=== PATIENT | male | born 1985 | race Caucasian/White ===

== ENCOUNTER 2022-05-14 17:23 | Inpatient (IN) | payer MEDICAID, OTHER, SELFPAY ==
[2022-05-14 17:34] VITALS: BP 123/87; BP 140/62; PULSE 74; PULSE 76; RESP 18; TEMP 36.8; O2SAT 96; O2SAT 98; BMI 42.8
--- NOTE | 2022-05-14 17:34 | ED_ITS ---
HPI - Psych General Chief Complaint: Psychiatric Symptoms Stated Complaint: section 12 HI Source: patient Mode of arrival: ambulatory Limitations: no limitations History of Present Illness HPI Narrative: 37-year-old male history of anxiety, depression, PTSD presents with anxiety, depression, thoughts of wanting to hurt other people around him. Patient tells me he wants to hurt random people around him however does not have a particular plan. Patient arrives on a Section 12 by N. patient reports med compliance. Denies visual, auditory and tactile hallucinations. Denies drugs, alcohol and tobacco. No medical complaints. According to patient's Section he was recently incarcerated for 16 years for murder. Related Data Allergies Allergy/AdvReac Type Severity Reaction Status Date / Time Unable to Assess Allergy Unverified 05/14/22 17:33 Review of Systems Review of Systems: Constitutional : No Fever, No Chills ENT/Mouth : No Ear Pain, No Nasal Congestion, No sore throat Eyes: No Eye Pain, No Swelling, No Redness Cardiovascular : No Chest Pain, No SOB Respiratory : No Cough, No Sputum, No Dyspnea Gastrointestinal : No Nausea, No Vomiting, No Diarrhea, No Hematochezia, No Melena Genitourinary : No Dysuria, No Urinary Frequency, No Hematuria Musculoskeletal : No Myalgias Skin : No Skin Lesions, No rash Neuro : No Weakness, No Numbness, No Paresthesias, No Dizziness, No Headache Psych : positive Anxiety, positive Depression, positive HI, No Si Heme/Lymph: No Lymphadenopathy Endocrine : No Polyuria, No Polydipsia All other systems reviewed and are negative Yes all other systems are reviewed and are negative [facility] Past Medical History Attestation statement: The following information was validated with the patient. Source: old records reviewed and nursing notes reviewed Social History Social History Advance Directives: No Advance Directives Information Provided: No Physical Exam Vital Signs: Vital Signs: Last Vital Signs Temp 98.3 F 05/14/22 17:34 Pulse 76 05/14/22 17:34 Resp 18 05/14/22 17:34 BP 123/87 05/14/22 17:34 Pulse Ox 98 05/14/22 17:34 O2 Del Method 05/14/22 17:34 BMI result Body Mass Index 42.8 vss Appearance: Alert.? Oriented X3.? No acute distress.? Head: Normocephalic, atraumatic, no step-offs or deformities Eyes: Pupils equal, round and reactive to light.? CVS: Normal heart rate and rhythm.? Pulses normal.? Respiratory: No respiratory distress.? Breath sounds normal.? Abdomen: Soft and nontender.? Skin: Skin warm and dry.? Normal skin color.? Normal skin turgor.? Extremities: No lower extremity edema.? No calf ttp. 5/5 strength to bilateral upper and lower extremities Neuro: Oriented X 3.? No motor deficit.? No sensory deficit. CN 2-12 intact Course Reevaluation(s) Reevaluation #1: CBC with slight leukocytosis likely reactive. CMP without acute findings requiring intervention. UA clean. BEEBE clean. Etanol negative. COVID negative. At this time patient will be placed into observation to allow more time to be evaluated by the behavioral health team. Time observation was started patient common cooperative no acute distress will continue to monitor. Time: 21:12 Medical Decision Making Medical Decision Making [facility] Narrative: [id number] 37-year-old presents with homicidal ideation, anxiety and depression physical exam benign likely anxiety, depression with homicidal ideation. I do not suspect metabolic derangements. Will rule out polysubstance abuse, ethanol use plan medical clearance evaluation by behavioral health team Differential Diagnosis Differential Diagnoses: The differential diagnosis associated with the presentation includes likely anxiety, depression with homicidal ideation. I do not suspect metabolic derangements. Will rule out polysubstance abuse, ethanol use Admission/Observation Consideration of admission/observation: Escalation of care including admission/observation considered Lab Data 05/14/22 17:43 05/14/22 17:43 Labs: Lab Results 05/14/22 05/14/22 05/14/22 Range/Units 17:42 17:43 17:43 WBC 13.5 H (4.8-10.8) X10*3/uL RBC 5.08 (4.60-5.80) X10*6/uL Hgb 14.4 (14.0-18.0) g/dl Hct 44.2 (42.0-52.0) % MCV 87.0 (80.0-98.0) fL MCH 28.3 (27.0-33.0) pg MCHC 32.6 (31.0-36.0) g/dl RDW 13.8 (11.0-16.0) % Plt Count 251 (160-400) X10*3/uL MPV 11.2 (9.4-12.4) fL Immature Gran % (Auto) 0.4 (0.0-0.4) % Neut % (Auto) 63.5 (45-73) % Lymph % (Auto) 28.7 (20-40) % [place] % (Auto) 5.5 (2-11) % Eos % (Auto) 1.5 (0-4) % Baso % (Auto) 0.4 (0-2) % Lymph # (Auto) 3.9 (1.2-4.9) X10*3/uL [place] # (Auto) 0.7 (0.1-1.2) X10*3/uL Eos # (Auto) 0.2 (0.0-0.4) X10*3/uL Baso # (Auto) 0.1 (0.0-0.2) X10*3/uL Abs Immat Gran (auto) 0.05 H (0.00-0.03) X10*3/uL Absolute Neuts (auto) 8.6 H (2.0-8.3) x10*3/uL Absolute Nucleated RBC 0.000 (0.0-0.012) X10*3/uL Nucleated RBC % (auto) 0.0 (0.0-0.2) /100WBC Sodium 143 (135-145) mmol/L Potassium 4.3 (3.3-5.1) mmol/L Chloride 106 (96-108) mmol/L Carbon Dioxide 30 H (22-29) mmol/L Anion Gap 11 L (12-20) BUN 13 (9-16) mg/dL Creatinine 0.80 (0.5-1.4) mg/dL Estim Creat Clear Calc 191.1 Estimated GFR > 60 Random Glucose 97 (60-115) mg/dL Calcium 9.4 (8.4-10.2) mg/dL Magnesium 1.9 (1.6-2.6) mg/dL Total Bilirubin 0.4 (0.0-1.0) mg/dL AST 26 (5-37) U/L ALT 48 H (0-40) U/L Alkaline Phosphatase 93 (39-117) U/L Total Protein 7.9 (6.5-8.0) g/dL Albumin 4.0 (3.5-5.0) g/dL Urine Color Urine Appearance Urine pH (5.0-9.0) Ur Specific [place] (1.005-1.025) Urine Protein (Neg-Trace) mg/dL Urine Glucose (UA) (Negative) mg/dL Urine Ketones (Negative) mg/dL Urine Blood (Negative) Urine Nitrite (Negative) Ur Leukocyte Esterase (Negative) Urine Opiates Screen Not Detected (Not Detect) Urine Fentanyl Screen Not Detected (Not Detect) Ur Barbiturates Screen Not Detected (Not Detect) Ur Phencyclidine Scrn Not Detected (Not Detect) Ur Amphetamines Screen Not Detected (Not Detect) U Benzodiazepines Scrn Not Detected (Not Detect) Urine Cocaine Screen Not Detected (Not Detect) U Marijuana (THC) Screen Not Detected (Not Detect) Ethyl Alcohol < 10 mg/dL COVID-19 ([facility]AN) (Negative) COVID-19 Clin Com 05/14/22 05/14/22 Range/Units 17:43 17:43 WBC (4.8-10.8) X10*3/uL RBC (4.60-5.80) X10*6/uL Hgb (14.0-18.0) g/dl Hct (42.0-52.0) % MCV (80.0-98.0) fL MCH (27.0-33.0) pg MCHC (31.0-36.0) g/dl RDW (11.0-16.0) % Plt Count (160-400) X10*3/uL MPV (9.4-12.4) fL Immature Gran % (Auto) (0.0-0.4) % Neut % (Auto) (45-73) % Lymph % (Auto) (20-40) % [place] % (Auto) (2-11) % Eos % (Auto) (0-4) % Baso % (Auto) (0-2) % Lymph # (Auto) (1.2-4.9) X10*3/uL [place] # (Auto) (0.1-1.2) X10*3/uL Eos # (Auto) (0.0-0.4) X10*3/uL Baso # (Auto) (0.0-0.2) X10*3/uL Abs Immat Gran (auto) (0.00-0.03) X10*3/uL Absolute Neuts (auto) (2.0-8.3) x10*3/uL Absolute Nucleated RBC (0.0-0.012) X10*3/uL Nucleated RBC % (auto) (0.0-0.2) /100WBC Sodium (135-145) mmol/L Potassium (3.3-5.1) mmol/L Chloride (96-108) mmol/L Carbon Dioxide (22-29) mmol/L Anion Gap (12-20) BUN (9-16) mg/dL Creatinine (0.5-1.4) mg/dL Estim Creat Clear Calc Estimated GFR Random Glucose (60-115) mg/dL Calcium (8.4-10.2) mg/dL Magnesium (1.6-2.6) mg/dL Total Bilirubin (0.0-1.0) mg/dL AST (5-37) U/L ALT (0-40) U/L Alkaline Phosphatase (39-117) U/L Total Protein (6.5-8.0) g/dL Albumin (3.5-5.0) g/dL Urine Color Yellow Urine Appearance Clear Urine pH 7.5 (5.0-9.0) Ur Specific [place] 1.020 (1.005-1.025) Urine Protein Negative (Neg-Trace) mg/dL Urine Glucose (UA) Negative (Negative) mg/dL Urine Ketones Negative (Negative) mg/dL Urine Blood Negative (Negative) Urine Nitrite Negative (Negative) Ur Leukocyte Esterase Negative (Negative) Urine Opiates Screen (Not Detect) Urine Fentanyl Screen (Not Detect) Ur Barbiturates Screen (Not Detect) Ur Phencyclidine Scrn (Not Detect) Ur Amphetamines Screen (Not Detect) U Benzodiazepines Scrn (Not Detect) Urine Cocaine Screen (Not Detect) U Marijuana (THC) Screen (Not Detect) Ethyl Alcohol mg/dL COVID-19 ([facility]AN) Negative (Negative) COVID-19 Clin Com See Note Core Measures AMI core measures followed: Yes Measure exclusions: not indicated Critical Care Time Critical Care Time Critical Care Time: No Discharge Plan Discharge Clinical Impression: Depression, Acute anxiety, Suicidal ideation Patient Disposition: Still a Patient Interventions: Dare-Suicide Risk Severity Scale Last Done: 05/14/22 17:44
--- NOTE | 2022-05-14 17:47 | PC.NURSE ---
patient alert, changed over into hospital attire. calm and cooperative with staff. denies SI but admits to HI. will CTM
[2022-05-14 17:50] LABS: MANUAL DIFF FLAG NO
[2022-05-14 17:54] LABS: Basophils Absolute Auto 0.1 X10*3/uL (0.0-0.2); Basophils Percent Auto 0.4 % (0-2); Eosinophils Absolute Auto 0.2 X10*3/uL (0.0-0.4); Eosinophils Percent Auto 1.5 % (0-4); Hematocrit 44.2 % (42.0-52.0); Hemoglobin 14.4 g/dl (14.0-18.0); Imm Gran Abs Auto 0.05 X10*3/uL (0.00-0.03); Imm Gran Pct Auto 0.4 % (0.0-0.4); Lymphocytes Absolute Auto 3.9 X10*3/uL (1.2-4.9); Lymphocytes Percent Auto 28.7 % (20-40); Mean Corpuscular HGB Conc 32.6 g/dl (31.0-36.0); Mean Corpuscular Hemoglobin 28.3 pg (27.0-33.0); Mean Platelet Volume 11.2 fL (9.4-12.4); Monocytes Absolute Auto 0.7 X10*3/uL (0.1-1.2); Monocytes Percent Auto 5.5 % (2-11); Neutrophils Absolute Auto 8.6 x10*3/uL (2.0-8.3); Neutrophils Percent Auto 63.5 % (45-73); Platelet Count 251 X10*3/uL (160-400); Red Blood Count 5.08 X10*6/uL (4.60-5.80); Red Cell Distribution Width 13.8 % (11.0-16.0); White Blood Count 13.5 X10*3/uL (4.8-10.8)
[2022-05-14 17:59] LABS: Appearance Urine Clear; Color Urine Yellow; Glucose Urine UA Negative (Negative); Leukocyte Esterase Urine Negative (Negative); Nitrite Urine Negative (Negative); PH 7.5 (5.0-9.0); Urine Blood Negative (Negative); Urine Ketones Negative (Negative); Urine Protein Negative (Neg-Trace)
[2022-05-14 18:04] LABS: Amphetamine Screen Urine Not Detected (Not Detect); Barbiturates, Urine Not Detected (Not Detect); Benzodiazepines Screen Urine Not Detected (Not Detect); Cannabinoid Screen Urine Not Detected (Not Detect); Cocaine Screen Urine Not Detected (Not Detect); Fentanyl, urine Not Detected (Not Detect); Opiate Screen Urine Not Detected (Not Detect); Phencyclidine Screen Urine Not Detected (Not Detect)
[2022-05-14 18:06] LABS: COVID-19 Test Negative (Negative); IDNOW Serial# 08D9AD1C
[2022-05-14 18:18] LABS: Alanine Aminotransferase 48 U/L (0-40); Alkaline Phosphatase 93 U/L (39-117); Anion Gap 11 (12-20); Aspartate Amino Transferase 26 U/L (5-37); Bilirubin Total 0.4 mg/dL (0.0-1.0); Blood Urea Nitrogen 13 mg/dL (9-16); Calcium 9.4 mg/dL (8.4-10.2); Carbon Dioxide 30 mmol/L (22-29); Chloride 106 mmol/L (96-108); Creatinine Clr Calc Pharmacy 191.1; Estimated Glomerular Filt Rate > 60; Ethanol < 10 mg/dL; Glucose Random 97 mg/dL (60-115); Magnesium 1.9 mg/dL (1.6-2.6); Potassium 4.3 mmol/L (3.3-5.1); Sodium 143 mmol/L (135-145); Total Protein 7.9 g/dL (6.5-8.0)
[2022-05-15 06:19] VITALS: BP 103/50; PULSE 79; RESP 16; TEMP 36.6; O2SAT 95
--- NOTE | 2022-05-15 07:52 | PC.NURSE ---
pt is a/o x 3 no sob/jon noted speaks in full sentences. denies any si/hi. denies any pain/disc. pt is watching tv in his room.
[2022-05-15 11:36] VITALS: BP 93/50; PULSE 70; RESP 19; TEMP 37.3; O2SAT 96
--- NOTE | 2022-05-15 13:49 | PC.NURSE ---
rn to rn report given darya. pt aware of plan of care for transfer to m3
--- NOTE | 2022-05-15 15:48 | PC.NURSE ---
pt sleeping at this time, awaiting transfer to go upstairs
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
[2022-05-15 16:49] VITALS: BP 124/80; PULSE 70; RESP 18; TEMP 36.3; O2SAT 95
--- NOTE | 2022-05-15 17:06 | PC.NURSE ---
Pt reports having difficulty sleeping past 3 nights. He reports trazodone, seroquel and doxepin have been ineffective.
--- NOTE | 2022-05-15 17:31 | PC.NURSE ---
pt refused flu vaccine at this time
--- NOTE | 2022-05-15 21:22 | PC.NURSE ---
Pt reported to this RN he has not slept in 6 days and a blackout is inevitable ; pt referring to episodes where he blacks out and commits acts of violence. Pt feels the current prescribed meds are not helpful but does not offer a suggestion for what does work. On-call MD consulted, decision made to give 1 time order of klonopin to aid in sleep tonight. Pt informed of this and emphasized it is a one-time order and he needs to speak with is treatment team tomorrow about future options. Pt verbalized understanding.
[2022-05-15] MEDS: clonazePAM 1 MG TABLET PO (22:23)
[2022-05-15] MEDS: Doxepin HCl 25 MG CAPSULE 50 MG PO (22:24)
[2022-05-16 09:01] VITALS: BP 138/72; PULSE 94; RESP 16; TEMP 36.6; O2SAT 96
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
[2022-05-16] MEDS: Doxepin HCl 25 MG CAPSULE 50 MG PO (20:59)
[2022-05-16] MEDS: clonazePAM 1 MG TABLET PO (20:59)
[2022-05-16] MEDS: Prazosin HCL 1 MG CAPSULE 2 MG PO (21:00)
[2022-05-16] MEDS: hydrOXYzine HCL 50 MG TABLET 100 MG PO (21:01)
[2022-05-16 21:05] VITALS: BP 135/93; PULSE 94; TEMP 36.4; O2SAT 98
[2022-05-17 07:00] VITALS: BMI 39.0
[2022-05-17 09:45] VITALS: BP 126/77; PULSE 126; RESP 18; TEMP 36.6; O2SAT 96
--- NOTE | 2022-05-17 12:38 | HO.PSYCHPN ---
Subjective Subjective Date of Service: 05/17/22 Reason For Visit: HI Subjective Notes: Conditional Voluntary Interim History: Pt reports he was able to sleep well last night. He denies SI/HI. He reports no black out. Less anxiety. No overt sedation during the day. Per nursing, pt has been sleeping and eating well, visible on the unit and social with select peers. No VH/AH. Medication Compliance: Yes Side effects from medications: No Attending Groups: Yes Review of Systems Review of Systems Constitutional : No Fever, No Chills ENT/Mouth : No Ear Pain, No Nasal Congestion, No sore throat Eyes: No Eye Pain, No Swelling, No Redness Cardiovascular : No Chest Pain, No SOB Respiratory : No Cough, No Sputum, No Dyspnea Gastrointestinal : No Nausea, No Vomiting, No Diarrhea, No Hematochezia, No Melena Genitourinary : No Dysuria, No Urinary Frequency, No Hematuria Musculoskeletal : No Myalgias Skin : No Skin Lesions, No rash Neuro : No Weakness, No Numbness, No Paresthesias, No Dizziness, No Headache Psych : positive Anxiety, positive Depression, positive HI, No Si Heme/Lymph: No Lymphadenopathy Endocrine : No Polyuria, No Polydipsia All other systems reviewed and are negative Yes all other systems are reviewed and are negative Mental Status Exam Mental Status Exam Narrative: Appearance: MO, casually groomed, fair hygiene, in NAD Behavior: cooperative, clenching fist at times Psychomotor: no agitation or retardation noted Speech: clear, normal rate/rhythm/volume, spontaneous TP: linear TC: feeling more anxious, worried about not adjusting to life outside of assisted Mood: better Affect: congruent SI: none HI: none AH/VH: denies Insight/judgment:fair x 2. Memory/cog: alert, oriented x 3. grossly intact to conversational testing. Diagnostics Vital Signs (24Hr): Vital Signs - 24 hr 05/17/22 09:45 05/17/22 20:58 05/18/22 08:45 Temperature 98 F 98.3 F 98.0 F Pulse Rate 126 H 102 H 95 Respiratory Rate 18 18 Blood Pressure 126/77 130/81 136/78 Pulse Oximetry 96 97 96 Oxygen Delivery Method Room Air Room Air Room Air BMI result Body Mass Index 39.0 Labs 05/14/22 17:43 05/14/22 17:43 Medications Medications Current Medications Acetaminophen (Acetaminophen 325 Mg Tablet) 650 mg PO Q6H PRN PRN Reason: Headache/Pain Mild Scale (1-3) Al Hydroxide/Mg Hydroxide (Magnesium Hydrox/Alum Hydrox 30 Ml Oral.Susp) 30 ml PO Q6H PRN PRN Reason: Heartburn/Nausea Clonazepam (Clonazepam 1 Mg Tablet) 1 mg PO BEDTIME GIRISH Last Admin: 05/17/22 20:55 Dose: 1 mg Doxepin HCl (Doxepin Hcl 25 Mg Capsule) 50 mg PO BEDTIME GIRISH Last Admin: 05/17/22 20:55 Dose: 50 mg Hydroxyzine HCl (Hydroxyzine Hcl 50 Mg Tablet) 100 mg PO BEDTIME PRN PRN Reason: Insomnia Last Admin: 05/16/22 21:01 Dose: 100 mg Hydroxyzine HCl (Hydroxyzine Hcl 25 Mg Tablet) 25 mg PO Q6H PRN PRN Reason: Anxiety Magnesium Hydroxide (Milk Of Magnesia 30 Ml Oral.Susp) 30 ml PO DAILY PRN PRN Reason: Constipation Nicotine Polacrilex (Nicotine Polacrilex 2 Mg Gum) 4 mg BUCCAL Q2H PRN PRN Reason: Nicotine Cravings Prazosin HCl (Prazosin Hcl 1 Mg Capsule) 2 mg PO BEDTIME GIRISH; Protocol Last Admin: 05/17/22 20:55 Dose: 2 mg Trazodone HCl (Trazodone Hcl 50 Mg Tablet) 50 mg PO BEDTIME MRX1 PRN PRN Reason: Insomnia Allergies Allergies Allergy/AdvReac Type Severity Reaction Status Date / Time No Known Allergies Allergy Verified 05/15/22 20:41 Assessment & Plan Assessment & Plan (1) Mood disorder: Status: Acute Code(s): F39 - Unspecified mood [affective] disorder Plan Mr. Crabtree is a 37 year-old male with hx of trauma, incarceration for several years who recently released from assisted after 6 months. He has been at [facility] for the past 2 weeks. He reports not sleeping, having nightmares, racing thoughts which he fears may lead to him harming someone. He reports he fears medication that are overly sedating during the day. He reports agrees to continue prazosin and adjust the dose. He denies SI/HI. He reports he fears that he may only be able to function in structure setting such as assisted not in the community. PLAN 1. Admit to M3, CV, 15 minutes checks for safety 2. Increase prazosin 2mg po qhs, doxepin 50mg po qhs and clonazepam 1mg po qhs. 3. aftercare planning. 05/17 continue tx. Reason for contiued inpatient stay Substantial Risk for: harm to self Time Spent With Patient Time: Total time managing care of this patient today ____ minutes.
[2022-05-17] MEDS: Prazosin HCL 1 MG CAPSULE 2 MG PO (20:55)
[2022-05-17] MEDS: Doxepin HCl 25 MG CAPSULE 50 MG PO (20:55)
[2022-05-17] MEDS: clonazePAM 1 MG TABLET PO (20:55)
[2022-05-17 20:58] VITALS: BP 130/81; PULSE 102; TEMP 36.8; O2SAT 97
[2022-05-18 08:45] VITALS: BP 136/78; PULSE 95; RESP 18; TEMP 36.7; O2SAT 96
--- NOTE | 2022-05-18 12:07 | P.PNPSI_ITS ---
Subjective Subjective Date of Service: 05/18/22 Reason For Visit: HI Subjective Notes: Conditional Voluntary Interim History: Pt reports sleeping well but woke up after midnight. He did not want to take hydroxizine 100mg po as previous night he later felt very somnolent. He reports he has not had any nightmares. He reports feeling calmer, no SI/HI. No anxiety. Medication Compliance: Yes Side effects from medications: No Review of Systems Review of Systems Constitutional : No Fever, No Chills ENT/Mouth : No Ear Pain, No Nasal Congestion, No sore throat Eyes: No Eye Pain, No Swelling, No Redness Cardiovascular : No Chest Pain, No SOB Respiratory : No Cough, No Sputum, No Dyspnea Gastrointestinal : No Nausea, No Vomiting, No Diarrhea, No Hematochezia, No Melena Genitourinary : No Dysuria, No Urinary Frequency, No Hematuria Musculoskeletal : No Myalgias Skin : No Skin Lesions, No rash Neuro : No Weakness, No Numbness, No Paresthesias, No Dizziness, No Headache Psych : positive Anxiety, positive Depression, positive HI, No Si Heme/Lymph: No Lymphadenopathy Endocrine : No Polyuria, No Polydipsia All other systems reviewed and are negative Yes all other systems are reviewed and are negative Mental Status Exam Mental Status Exam Narrative: Appearance: MO, casually groomed, fair hygiene, in NAD Behavior: cooperative, clenching fist at times Psychomotor: no agitation or retardation noted Speech: clear, normal rate/rhythm/volume, spontaneous TP: linear TC: feeling more anxious, worried about not adjusting to life outside of long term Mood: better Affect: congruent SI: none HI: none AH/VH: denies Insight/judgment:fair x 2. Memory/cog: alert, oriented x 3. grossly intact to conversational testing. Diagnostics Vital Signs (24Hr): Vital Signs - 24 hr 05/17/22 20:58 05/18/22 08:45 Temperature 98.3 F 98.0 F Pulse Rate 102 H 95 Respiratory Rate 18 Blood Pressure 130/81 136/78 Pulse Oximetry 97 96 Oxygen Delivery Method Room Air Room Air BMI result Body Mass Index 39.0 Labs 05/14/22 17:43 05/14/22 17:43 Medications Medications Current Medications Acetaminophen (Acetaminophen 325 Mg Tablet) 650 mg PO Q6H PRN PRN Reason: Headache/Pain Mild Scale (1-3) Al Hydroxide/Mg Hydroxide (Magnesium Hydrox/Alum Hydrox 30 Ml Oral.Susp) 30 ml PO Q6H PRN PRN Reason: Heartburn/Nausea Clonazepam (Clonazepam 1 Mg Tablet) 1 mg PO BEDTIME GIRISH Last Admin: 05/17/22 20:55 Dose: 1 mg Doxepin HCl (Doxepin Hcl 25 Mg Capsule) 50 mg PO BEDTIME GIRISH Last Admin: 05/17/22 20:55 Dose: 50 mg Hydroxyzine HCl (Hydroxyzine Hcl 25 Mg Tablet) 25 mg PO Q6H PRN PRN Reason: Anxiety/Sleep Magnesium Hydroxide (Milk Of Magnesia 30 Ml Oral.Susp) 30 ml PO DAILY PRN PRN Reason: Constipation Nicotine Polacrilex (Nicotine Polacrilex 2 Mg Gum) 4 mg BUCCAL Q2H PRN PRN Reason: Nicotine Cravings Prazosin HCl (Prazosin Hcl 1 Mg Capsule) 2 mg PO BEDTIME GIRISH; Protocol Last Admin: 05/17/22 20:55 Dose: 2 mg Allergies Allergies Allergy/AdvReac Type Severity Reaction Status Date / Time No Known Allergies Allergy Verified 05/15/22 20:41 Assessment & Plan Assessment & Plan (1) Mood disorder: Status: Acute Code(s): F39 - Unspecified mood [affective] disorder Plan Mr. Crabtree is a 37 year-old male with hx of trauma, incarceration for several years who recently released from long term after 6 months. He has been at [facility] for the past 2 weeks. He reports not sleeping, having nightmares, racing thoughts which he fears may lead to him harming someone. He reports he fears medication that are overly sedating during the day. He reports agrees to continue prazosin and adjust the dose. He denies SI/HI. He reports he fears that he may only be able to function in structure setting such as long term not in the community. PLAN 1. Admit to M3, CV, 15 minutes checks for safety 2. Increase prazosin 2mg po qhs, doxepin 50mg po qhs and clonazepam 1mg po qhs. 3. aftercare planning. 05/17 continue tx. 05/18 continue tx. dc hydroxyzine 100mg po qhs prn due to excessive sedation, continue prn hydroxyzine 25mg po q6h Reason for contiued inpatient stay Substantial Risk for: stable for discharge Time Spent With Patient Time: Total time managing care of this patient today ____ minutes.
[2022-05-18 20:44] VITALS: BP 143/73; PULSE 96; RESP 18; TEMP 36.4; O2SAT 97
[2022-05-18] MEDS: Doxepin HCl 25 MG CAPSULE 50 MG PO (20:46)
[2022-05-18] MEDS: Prazosin HCL 1 MG CAPSULE 2 MG PO (20:46)
[2022-05-18] MEDS: clonazePAM 1 MG TABLET PO (20:46)
[2022-05-19 08:45] VITALS: BP 140/86; PULSE 85; RESP 18; TEMP 36.5; O2SAT 98
--- NOTE | 2022-05-19 12:46 | P.PNPSI_ITS ---
Subjective Subjective Date of Service: 05/19/22 Reason For Visit: HI Subjective Notes: Conditional Voluntary Interim History: The nursing staff reported the patient slept well, he have eating well with good appetite. On interview the patient denies new symptoms he is content with the current treatment. Mental Status Exam Mental Status Exam Patient Appearance: Well Grooomed and Appropriate Patient Orientation: Person and Situation Level of Consciousness: Restless Patient Behavior: Guarded and Passive Mood Description: Withdrawn Affect Description: Constricted Ability to Follow Directions: Fair Speech Pattern: Clear Hallucinations: None Delusions: Not Present Thought Content: positive for Poverty of Content Judgement: Fair Diagnostics Vital Signs (24Hr): Vital Signs - 24 hr 05/18/22 20:44 05/19/22 08:45 Temperature 97.6 F 97.7 F Pulse Rate 96 85 Respiratory Rate 18 18 Blood Pressure 143/73 H 140/86 H Pulse Oximetry 97 98 Oxygen Delivery Method Room Air Room Air BMI result Body Mass Index 39.0 Labs 05/14/22 17:43 05/14/22 17:43 Medications Medications Current Medications Acetaminophen (Acetaminophen 325 Mg Tablet) 650 mg PO Q6H PRN PRN Reason: Headache/Pain Mild Scale (1-3) Al Hydroxide/Mg Hydroxide (Magnesium Hydrox/Alum Hydrox 30 Ml Oral.Susp) 30 ml PO Q6H PRN PRN Reason: Heartburn/Nausea Clonazepam (Clonazepam 1 Mg Tablet) 1 mg PO BEDTIME GIRISH Last Admin: 05/18/22 20:46 Dose: 1 mg Doxepin HCl (Doxepin Hcl 25 Mg Capsule) 50 mg PO BEDTIME GIRISH Last Admin: 05/18/22 20:46 Dose: 50 mg Hydroxyzine HCl (Hydroxyzine Hcl 25 Mg Tablet) 25 mg PO Q6H PRN PRN Reason: Anxiety/Sleep Magnesium Hydroxide (Milk Of Magnesia 30 Ml Oral.Susp) 30 ml PO DAILY PRN PRN Reason: Constipation Nicotine Polacrilex (Nicotine Polacrilex 2 Mg Gum) 4 mg BUCCAL Q2H PRN PRN Reason: Nicotine Cravings Prazosin HCl (Prazosin Hcl 1 Mg Capsule) 2 mg PO BEDTIME GIRISH; Protocol Last Admin: 05/18/22 20:46 Dose: 2 mg Allergies Allergies Allergy/AdvReac Type Severity Reaction Status Date / Time No Known Allergies Allergy Verified 05/15/22 20:41 Assessment & Plan Assessment & Plan (1) Mood disorder: Status: Acute Code(s): F39 - Unspecified mood [affective] disorder Plan Mr. Crabtree is a 37 year-old male with hx of trauma, incarceration for several years who recently released [facility]. He has been at [facility] for the past 2 weeks. He reports not sleeping, having nightmares, racing thoughts which he fears may lead to him harming someone. He reports he fears medication that are overly sedating during the day. He reports agrees to continue prazosin and adjust the dose. He denies SI/HI. He reports he fears that he may only be able to function in structure setting such as [facility] not in the community. PLAN 1. Admit to M3, CV, 15 minutes checks for safety 2. Increase prazosin 2mg po qhs, doxepin 50mg po qhs and clonazepam 1mg po qhs. 3. aftercare planning. 05/17 continue tx. 05/18 continue tx. dc hydroxyzine 100mg po qhs prn due to excessive sedation, continue prn hydroxyzine 25mg po q6h 05/19 keep same treatment Reason for contiued inpatient stay Substantial Risk for: inability to function, rapid decompensation and med/psych decompensation Time Spent With Patient Time: Total time managing care of this patient today __20__ minutes.
[2022-05-19 20:50] VITALS: BP 140/64; PULSE 99; RESP 18; TEMP 36.6; O2SAT 97
[2022-05-19] MEDS: Prazosin HCL 1 MG CAPSULE 2 MG PO (20:53)
[2022-05-19] MEDS: Doxepin HCl 25 MG CAPSULE 50 MG PO (20:54)
[2022-05-19] MEDS: clonazePAM 1 MG TABLET PO (20:54)
[2022-05-19] MEDS: hydrOXYzine HCL 25 MG TABLET PO (20:54)
[2022-05-20 10:05] VITALS: BP 112/76; PULSE 108; RESP 18; TEMP 36.6; O2SAT 97
--- NOTE | 2022-05-20 13:30 | P.PNPSI_ITS ---
Subjective Subjective Date of Service: 05/20/22 Reason For Visit: HI Subjective Notes: Conditional Voluntary Interim History: The nursing staff reported the patient had been compliant with treatment, he denies depression he looks much better, he denies hallucinations or delusions. He slept well and he was been watching TV. On interview the patient denies new symptoms Mental Status Exam Mental Status Exam Patient Appearance: Appropriate Patient Orientation: Person and Situation Level of Consciousness: Awake Patient Behavior: Guarded Mood Description: Constricted Affect Description: Calm Ability to Follow Directions: Good Speech Pattern: Clear Hallucinations: None Delusions: Not Present Thought Process: Distracted Thought Content: positive for Circumstantial Judgement: Poor Diagnostics Vital Signs (24Hr): Vital Signs - 24 hr 05/19/22 20:50 05/20/22 10:05 Temperature 97.9 F 97.8 F Pulse Rate 99 108 H Respiratory Rate 18 18 Blood Pressure 140/64 H 112/76 Pulse Oximetry 97 97 Oxygen Delivery Method Room Air Room Air BMI result Body Mass Index 39.0 Labs 05/14/22 17:43 05/14/22 17:43 Medications Medications Current Medications Acetaminophen (Acetaminophen 325 Mg Tablet) 650 mg PO Q6H PRN PRN Reason: Headache/Pain Mild Scale (1-3) Al Hydroxide/Mg Hydroxide (Magnesium Hydrox/Alum Hydrox 30 Ml Oral.Susp) 30 ml PO Q6H PRN PRN Reason: Heartburn/Nausea Clonazepam (Clonazepam 1 Mg Tablet) 1 mg PO BEDTIME GIRISH Last Admin: 05/19/22 20:54 Dose: 1 mg Doxepin HCl (Doxepin Hcl 25 Mg Capsule) 50 mg PO BEDTIME GIRISH Last Admin: 05/19/22 20:54 Dose: 50 mg Hydroxyzine HCl (Hydroxyzine Hcl 25 Mg Tablet) 25 mg PO Q6H PRN PRN Reason: Anxiety/Sleep Last Admin: 05/19/22 20:54 Dose: 25 mg Magnesium Hydroxide (Milk Of Magnesia 30 Ml Oral.Susp) 30 ml PO DAILY PRN PRN Reason: Constipation Nicotine Polacrilex (Nicotine Polacrilex 2 Mg Gum) 4 mg BUCCAL Q2H PRN PRN Reason: Nicotine Cravings Prazosin HCl (Prazosin Hcl 1 Mg Capsule) 2 mg PO BEDTIME GIRISH; Protocol Last Admin: 05/19/22 20:53 Dose: 2 mg Allergies Allergies Allergy/AdvReac Type Severity Reaction Status Date / Time No Known Allergies Allergy Verified 05/15/22 20:41 Assessment & Plan Assessment & Plan (1) Mood disorder: Status: Acute Code(s): F39 - Unspecified mood [affective] disorder Plan Mr. Crabtree is a 37 year-old male with hx of trauma, incarceration for several years who recently released from group home after 6 months. He has been at [facility] for the past 2 weeks. He reports not sleeping, having nightmares, racing t houghts which he fears may lead to him harming someone. He reports he fears medication that are overly sedating during the day. He reports agrees to continue prazosin and adjust the dose. He denies SI/HI. He reports he fears that he may only be able to function in structure setting such as group home not in the community. PLAN 1. Admit to M3, CV, 15 minutes checks for safety 2. Increase prazosin 2mg po qhs, doxepin 50mg po qhs and clonazepam 1mg po qhs. 3. aftercare planning. 05/17 continue tx. 05/18 continue tx. dc hydroxyzine 100mg po qhs prn due to excessive sedation, continue prn hydroxyzine 25mg po q6h 05/19 keep same treatment 05/20 keep same treatment. Reason for contiued inpatient stay Substantial Risk for: inability to function, rapid decompensation and med/psych decompensation Time Spent With Patient Time: Total time managing care of this patient today __20__ minutes.
[2022-05-20 22:00] VITALS: BP 137/85; PULSE 90; RESP 20; TEMP 36.6; O2SAT 97
[2022-05-20] MEDS: clonazePAM 1 MG TABLET PO (22:02)
[2022-05-20] MEDS: Doxepin HCl 25 MG CAPSULE 50 MG PO (22:03)
[2022-05-20] MEDS: Prazosin HCL 1 MG CAPSULE 2 MG PO (22:03)
[2022-05-20] MEDS: hydrOXYzine HCL 25 MG TABLET PO (22:06)
[2022-05-21 08:00] VITALS: BP 127/82; PULSE 89; TEMP 36.2; O2SAT 97
--- NOTE | 2022-05-21 10:54 | P.DS_ITS ---
DS: Providers Provider Date of Service: 05/21/22 Date of admission: 05/15/22 14:06 Primary care physician: None Physician DS: Diagnosis Discharge Diagnosis (1) Mood disorder: Status: Acute DS: Medications Discharge Medications Home Medications: Previous Rx's Medication Instructions Recorded doxepin 50 mg capsule 50 mg PO BEDTIME #30 caps 05/21/22 hydroxyzine HCl 25 mg tablet 25 mg PO BID PRN Anxiety/Sleep #60 05/21/22 tabs prazosin 2 mg capsule 2 mg PO BEDTIME #30 caps 05/21/22 Mental Status Exam Mental Status Exam Narrative: Appearance: MO, casually groomed, fair hygiene, in NAD Behavior: cooperative, clenching fist at times Psychomotor: no agitation or retardation noted Speech: clear, normal rate/rhythm/volume, spontaneous TP: linear TC: feeling more anxious, worried about not adjusting to life outside of penitentiary Mood: better Affect: congruent SI: none HI: none AH/VH: denies Insight/judgment:fair x 2. Memory/cog: alert, oriented x 3. grossly intact to conversational testing. Data Data Completed and Pending Completed studies during hospitalization [Text1]: 05/14/22 05/14/22 05/14/22 17:42 17:43 17:43 WBC 13.5 H RBC 5.08 Hgb 14.4 Hct 44.2 MCV 87.0 MCH 28.3 MCHC 32.6 RDW 13.8 Plt Count 251 MPV 11.2 Immature Gran % (Auto) 0.4 Neut % (Auto) 63.5 Lymph % (Auto) 28.7 [place] % (Auto) 5.5 Eos % (Auto) 1.5 Baso % (Auto) 0.4 Lymph # (Auto) 3.9 [place] # (Auto) 0.7 Eos # (Auto) 0.2 Baso # (Auto) 0.1 Abs Immat Gran (auto) 0.05 H Absolute Neuts (auto) 8.6 H Absolute Nucleated RBC 0.000 Nucleated RBC % (auto) 0.0 Sodium 143 Potassium 4.3 Chloride 106 Carbon Dioxide 30 H Anion Gap 11 L BUN 13 Creatinine 0.80 Estim Creat Clear Calc 191.1 Estimated GFR > 60 Random Glucose 97 Calcium 9.4 Magnesium 1.9 Total Bilirubin 0.4 AST 26 ALT 48 H Alkaline Phosphatase 93 Total Protein 7.9 Albumin 4.0 Urine Color Urine Appearance Urine pH Ur Specific [place] Urine Protein Urine Glucose (UA) Urine Ketones Urine Blood Urine Nitrite Ur Leukocyte Esterase Urine Opiates Screen Not Detected Urine Fentanyl Screen Not Detected Ur Barbiturates Screen Not Detected Ur Phencyclidine Scrn Not Detected Ur Amphetamines Screen Not Detected U Benzodiazepines Scrn Not Detected Urine Cocaine Screen Not Detected U Marijuana (THC) Screen Not Detected Ethyl Alcohol < 10 COVID-19 ([facility]) COVID-19 Clin Com 05/14/22 05/14/22 17:43 17:43 WBC RBC Hgb Hct MCV MCH MCHC RDW Plt Count MPV Immature Gran % (Auto) Neut % (Auto) Lymph % (Auto) [place] % (Auto) Eos % (Auto) Baso % (Auto) Lymph # (Auto) [place] # (Auto) Eos # (Auto) Baso # (Auto) Abs Immat Gran (auto) Absolute Neuts (auto) Absolute Nucleated RBC Nucleated RBC % (auto) Sodium Potassium Chloride Carbon Dioxide Anion Gap BUN Creatinine Estim Creat Clear Calc Estimated GFR Random Glucose Calcium Magnesium Total Bilirubin AST ALT Alkaline Phosphatase Total Protein Albumin Urine Color Yellow Urine Appearance Clear Urine pH 7.5 Ur Specific [place] 1.020 Urine Protein Negative Urine Glucose (UA) Negative Urine Ketones Negative Urine Blood Negative Urine Nitrite Negative Ur Leukocyte Esterase Negative Urine Opiates Screen Urine Fentanyl Screen Ur Barbiturates Screen Ur Phencyclidine Scrn Ur Amphetamines Screen U Benzodiazepines Scrn Urine Cocaine Screen U Marijuana (THC) Screen Ethyl Alcohol COVID-19 ([facility]) Negative COVID-19 Clin Com See Note DS: Summary Hospital Course Hospital Course: Subjective Notes: Robins Warning (given and shows understanding) and Conditional Voluntary Narrative: Mr. Crabtree is a 37 year-old with hx of Mood Disorder. Pt was recently released from penitentiary about 6 months ago after 6 year incarceration but reports total of 19 years in penitentiary (gang related murder). Pt currently resides at [facility]. Pt was brought to [facility] due to pt reports poor sleep, nightmares, feeling more agitated, fearing that he would black out and hurt someone. Pt also reported suicidal ideation with plan to OD. On the unit, pt presents as slightly guarded but cooperative. He reports he has been out of penitentiary for last 6 months. He has been at the program [facility] for 2 week. He reports when released he went to [facility] but he was asked to leave. He states for stupid reasons. He reports he went to friend's house and there was an incident there were his friend found him with multiple guns which he reports not remembering buying. He denies suicidal or homicidal. No VH/AH. He reports difficulty adjusting to life outside of penitentiary and not funcitoning as well without the structure of penitentiary system. He reports not sleeping for the past 2 nights. He reports doxepine was started and increased and he had more nightmares which were disturbing. Past Psychiatric History: Inpatient: [facility] WITH [facility] 2014; 2016 OP:SUDHA Gutierrez Past medication trials: seroquel (restless, too sedating), clonazepam, doxepin Hx of suicide attempts:denies Medical Evaluation Reviewed: Yes HOSPITAL COURSE On the unit, pt was admitted on a CV and placed on 15 minutes checks for safety. Pt reported poor sleep, nightmares, increase feelings of hypervigilant which pt identified as signs of black outs when he is most likely to become assaultive towards others. He denied suicidal or homicidal ideation. He expressed his fear and concern about not being able to adjust to setting that are not penitentiary since he has spent more than 19 years in longterm and recently was released. He did not appear to respond to internal stimuli. No overt delusional content noted or reported. We discussed risks, benefits and alternative treatment options. Pt agreed to continue low dose of doxepin of 50mg po qhs. He reported higher doses increase nightmares. He agreed to start clonazepam 1mg po qhs for sleep and anxiety. He agrees to start prazosin for nightmares. His affect gradually presented as brighter, less anxious. He denied SI/HI. He denied sedation during the day. He did feel sedated with hydroxizine 100mg po qhs next day during the day. Therefore, it was discontinued. There were no i ncidents of disruptive behaviors nor need for restraints. Pt was visible on the unit, social with select peers. He agreed to return to residential dual dx program at [facility]. Time spent discussing smoking cessation with patient: 3 to 10 minutes Status at Discharge Cognitive/behavioral status at discharge: Pt with bright, non labile, no SI/HI. No VH/AH. No delusions. No signs of aggression towards self or others. Sleeping and eating well. Functional status at discharge: independent ambulation Overall status at discharge: patient is progressing back to baseline Time Spent with Patient Time attestation: Total time managing care of this patient today __30__ minutes. Time spent: Less than 30 minutes Discharge Plan Discharge Anticipated Discharge Date/Time: 05/21/22 10:46 Patient Disposition: Home, Self-Care Discharge Diagnosis: Mood Disorder Referrals: Didier Nava (therapy intake) [Other] - 05/23/22 2:00 pm (In office appointment) Tracy Busch (psychiatrist) [Other] - 06/20/22 2:00 pm (This appointment is telehealth but can be completed from the clinic. You will be set up with a computer station at [facility] to complete your appointment) Tracy Busch (psychiatrist) [Other] - 07/19/22 10:00 am (This appointment is telehealth but can be completed from the clinic. You will be set up with a computer station at [facility] to complete your appointment) [facility] [Provider Group] - 1 Week Discharge Medications: New prazosin 2 mg capsule 2 mg PO BEDTIME Qty: 30 0RF doxepin 50 mg capsule 50 mg PO BEDTIME Qty: 30 0RF hydroxyzine HCl 25 mg Tablet 25 mg PO BID PRN (Reason: Anxiety/Sleep) Qty: 60 0RF Discontinued doxepin 50 mg capsule 1 - 2 cap PO BEDTIME hydroxyzine pamoate 50 mg capsule 100 mg PO BEDTIME PRN (Reason: Insomnia) Discharge Orders: Discharge Order (Routine); Ordered 05/21/22 Ordered By: Renita Davis Diet: Regular diet Activity on Discharge: As tolerated Stand Alone Forms: Patient Portal Discharge page, Community Support Care Plan Goals: 1. Maintain mood 2. No SI/HI 3. No aggression towards self or others. Health Concerns: Follow up with PCP Plan of Treatment: 1. Take medications as prescribed 2. Go to nearest ED or call 911 in event of emergency Assessment: Pt with bright, non labile mood. No SI/HI. No VH/AH. Pt sleeping and eating well. No signs of aggression towards self or others. Future oriented in that he is looking forward to continue OP treatment and return to residential program.
== END 2022-05-21 11:25 | disposition home or self-care (01) | DRG 753 ==
LOC: HO.ED 05-15 13:52 → HO.PADLT16 05-15 14:10
PROVIDERS: Physician Assistant; Admitting Provider Psychiatry & Neurology Psychiatry; Emergency Provider Emergency Medicine Emergency Medical Services; Visit Provider Social Worker
DX: F39 Unspecified mood [affective] disorder (principal); R45.851 Suicidal ideations; F41.9 Anxiety disorder, unspecified; R45.850 Homicidal ideations; F17.210 Nicotine dependence, cigarettes, uncomplicated; Z71.6 Tobacco abuse counseling; Z20.822 Contact with and (suspected) exposure to COVID-19; Z79.899 Other long term (current) drug therapy
CPT/HCPCS: 80053; 80307; 81003; 82077; 83735; 85025; 87635; 99285